=== PATIENT | male | born 1975 | race Caucasian/White ===

== ENCOUNTER 2018-08-15 16:34 | Emergency (ER) | payer MEDICAID ==
[~2018-08-15] VITALS: Ht 170.2 cm; Wt 84.1 kg
[~2018-08-15 16:34] MED LIST: CLIN300C13 PO; FAMO40TA73 PO; ONDA4TAB6 PO
[2018-08-15 17:15] LABS: BASOPHILS % (AUTO) 0.3 % (0-1); EOSINOPHILS # (AUTO) 0.3 X10'3 (0-0.9); EOSINOPHILS % (AUTO) 2.5 % (0-6); HEMATOCRIT 43.5 % (42.0-52.0); HEMOGLOBIN 14.6 g/dl (14.0-17.9); LYMPHOCYTES % (AUTO) 19.6 % (21-51); MEAN CORPUSCULAR HEMOGLOBIN 29.4 PG (27.0-31.0); MEAN CORPUSCULAR HGB CONC 33.5 % (33.0-36.5); MEAN CORPUSCULAR VOLUME 87.6 FL (78-98); MEAN PLATELET VOLUME 7.3 FL (7.4-10.4); MONOCYTES # (AUTO) 1.5 X10'3 (0-0.9); MONOCYTES % (AUTO) 14.2 % (2-12); NEUTROPHILS # (AUTO) 6.5 X10'3 (1.8-7.7); NEUTROPHILS % (AUTO) 63.4 % (42-75); PLATELET COUNT 378 X10'3 (140-440); RED BLOOD COUNT 4.96 X10'6 (4.70-6.10); RED CELL DISTRIBUTION WIDTH 14.1 % (11.5-14.5); WHITE BLOOD COUNT 10.3 X10'3 (4.5-11.0)
[2018-08-15 17:30] LABS: ALANINE AMINOTRANSFERASE 135 U/L (12-78); ALBUMIN 4.2 G/DL (3.4-5.0); ALBUMIN/GLOBULIN RATIO 1.2 (1.1-1.5); ALKALINE PHOSPHATASE 50 IU/L (46-116); ANION GAP 10 (8-16); ASPARTATE AMINO TRANSFERASE 145 U/L (10-37); BLOOD UREA NITROGEN 25 MG/DL (7-18); BUN/CREATININE RATIO 23.6 (5.4-32.0); CALCIUM 8.6 MG/DL (8.5-10.1); CHLORIDE 103 MMOL/L (99-107); CREATININE 1.06 MG/DL (0.60-1.10); GLUCOSE 116 MG/DL (70-104); POTASSIUM 3.5 MMOL/L (3.5-5.1); SODIUM 141 MMOL/L (135-145); TOTAL CARBON DIOXIDE 27.8 MMOL/L (24-32); TOTAL PROTEIN 7.6 G/DL (6.4-8.2); eGFR 77 ML/MIN
[2018-08-15 17:34] LABS: INR 1.1 INR; PARTIAL THROMBOPLASTIN TIME 30 SECONDS (22-32); PROTHROMBIN TIME 11.5 SECONDS (9.0-12.0)
[2018-08-15] MEDS ORDERED: PANT40TA4 PO (17:59)
[2018-08-15 18:18] VITALS: BP 119/87
== END 2018-08-15 18:19 | disposition home or self-care (01) ==
LOC: ER 16:34
DX: R07.9 Chest pain, unspecified (principal); R11.2 Nausea with vomiting, unspecified; R12 Heartburn; K21.9 Gastro-esophageal reflux disease without esophagitis; Z79.2 Long term (current) use of antibiotics; Z79.899 Other long term (current) drug therapy
CPT/HCPCS: 36415; 71045; 80053; 84484; 85025; 85610; 85730; 93005; 99284

== ENCOUNTER 2020-05-16 17:47 | Emergency (ER) | payer MEDICAID ==
[~2020-05-16] VITALS: Ht 167.6 cm; Wt 78.2 kg
[~2020-05-16 17:47] MED LIST changes: +PANT40TA4 PO
[2020-05-16 18:17] VITALS: BP 127/82
[2020-05-16] MEDS ORDERED: PENI250T2 PO (18:41)
[2020-05-16] MEDS ORDERED: NAPR-56 PO (18:41)
--- NOTE | 2020-05-16 19:09 | NUR ---
PT SEEN AND DC'D BY PROVIDER
== END 2020-05-16 19:10 | disposition home or self-care (01) ==
LOC: ER 17:48
DX: K02.9 Dental caries, unspecified (principal); K21.9 Gastro-esophageal reflux disease without esophagitis; Z79.2 Long term (current) use of antibiotics; Z79.899 Other long term (current) drug therapy
CPT/HCPCS: 99283

== ENCOUNTER 2020-06-27 16:29 | Emergency (ER) | payer MEDICAID ==
[~2020-06-27] VITALS: Ht 167.6 cm; Wt 79.5 kg
[~2020-06-27 16:29] MED LIST changes: +LIDOcaine 1% 30ml preserv. free vial ONE; -PANT40TA4 PO; +PANT40TA54 PO
[2020-06-27] MEDS ORDERED: bacitracin 15gm ointment TP ONE (17:45)
[2020-06-27] MEDS ORDERED: TETanus/Pertussis (Acell)/Diphther VAC/PF (Tdap-Adult) 0.5ml syringe IMVAC ONE (17:45)
[2020-06-27] MEDS ORDERED: LIDOcaine 1% W/epiNEPHrine 1:200,000 10ml vial IJ ONE (17:45)
[2020-06-27] MEDS ORDERED: morphine 4 MG/ML inj SYRINge IV ONE (17:45)
[2020-06-27] MEDS ORDERED: LIDOcaine 1% w/epiNEPHrine 1:200,000 30ml vial IJ ONE (17:55)
[2020-06-27] MEDS ORDERED: ceFAZolin 1GM/D5W- ADD-VANTAGE 50 ML IV ONE (18:30)
--- NOTE | 2020-06-27 19:30 | NUR ---
Dr. Wood at bedside to discuss plan of care with patient.
--- NOTE | 2020-06-27 20:32 | NUR ---
SHEILA Moreno at bedside for irrigation of wound.
[2020-06-27] MEDS ORDERED: ondansetron 4mg rapidly disintigrating tab PO ONE (21:30)
[2020-06-27] MEDS ORDERED: HYDROcodone/acetaminophen 5mg/325mg tablet PO ONE (21:30)
--- NOTE | 2020-06-27 21:30 | NUR ---
Dr. Wood sutured patients macerated finger. Bacitracin applied to finger as ordered. SHEILA Theodore at bedside to apply finger splint with non-adherent dressing.
[2020-06-27] MEDS ORDERED: AMOX-422 PO (21:33)
[2020-06-27] MEDS ORDERED: IBUP-1986 PO (21:33)
[2020-06-27] MEDS ORDERED: HYDR-3965 PO (21:33)
[2020-06-27] MEDS ORDERED: ONDA4TAB6 PO (21:33)
[2020-06-27] MEDS ORDERED: PANT-47 PO (21:33)
[2020-06-27 21:50] VITALS: BP 126/76
== END 2020-06-27 21:51 | disposition home or self-care (01) ==
LOC: ER 16:30
DX: S61.213A Laceration without foreign body of left middle finger without damage to nail, initial encounter (principal); S66.113A Strain of flexor muscle, fascia and tendon of left middle finger at wrist and hand level, initial encounter; K21.9 Gastro-esophageal reflux disease without esophagitis; Z79.899 Other long term (current) drug therapy; W22.8XXA Striking against or struck by other objects, initial encounter; Y93.89 Activity, other specified; Y92.89 Other specified places as the place of occurrence of the external cause; Y99.8 Other external cause status
CPT/HCPCS: 12041; 73140; 90471; 90715; 96365; 96375; 99284; J0690; J2001; J2270